=== PATIENT | male | born 1960 | race African-American/Black ===

== ENCOUNTER 2018-08-12 10:01 | Inpatient (IN) | payer OTHER ==
[2018-08-12 10:07] VITALS: BMI 23.6
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
[2018-08-12] MEDS ORDERED: IBUPROFEN 400 MG TABLET (FP) PO PRN (12:38)
[2018-08-12] MEDS ORDERED: MAG HYDROX/AL HYDROX/SIMETH 30 ML UNIT-DOSE CUP PO PRN (12:38)
[2018-08-12] MEDS ORDERED: guaiFENesin/D-METHORPHAN HB 10 ML UNIT-DOSE CUPS PO PRN (12:38)
[2018-08-12] MEDS ORDERED: ACETAMINOPHEN 325 MG TABLET (FP) PO PRN (12:38)
[2018-08-12] MEDS ORDERED: P-EPHED 60MG/TRIPROLIDI 2.5MG TABLET PO PRN (12:38)
[2018-08-12] MEDS ORDERED: MAGNESIUM CITRATE 300 ML BOTTLE PO PRN (12:38)
[2018-08-12] MEDS ORDERED: hydrOXYzine PAMOATE 25 MG CAPSULE (FP) PO PRN (12:38)
[2018-08-12] MEDS ORDERED: MAGNESIUM HYDROX 2400MG/30ML ORAL SUSPENSION 30 ML CUP PO PRN (12:38)
[2018-08-12] MEDS ORDERED: MENTHOL/PHENOL 1 EACH UD MM PRN (12:38)
[2018-08-12 14:29] LABS: HEMATOCRIT 35.5 % (35.4-49); HEMOGLOBIN 11.8 GM/dL (11.7-16.9); MCH 28.5 pg (25.7-33.7); MCHC 33.1 g/dl (32.0-35.9); MEAN CELL VOLUME 86.1 fl (80-96); MEAN PLT VOLUME 9.9 fl (7.5-11.1); PLATELET COUNT 216 K/MM3 (134-434); RBC 4.13 M/mm3 (4.00-5.60); RDW 14.7 % (11.9-15.9)
[2018-08-12 15:13] LABS: ALBUMIN 3.5 g/dl (3.4-5.0); ALK PHOS 110 U/L (45-117); ANION GAP 8 MMOL/L (8-16); BILIRUBIN,TOTAL 0.2 mg/dL (0.2-1); BLOOD UREA NITROGEN 21 mg/dL (7-18); CALCIUM 8.8 mg/dL (8.5-10.1); CHLORIDE 107 mmol/L (98-107); CO2 28 mmol/L (21-32); CREATININE 1.2 mg/dL (0.55-1.3); GLUCOSE,RANDOM 91 mg/dL (74-106); POTASSIUM 4.3 mmol/L (3.5-5.1); SGOT/AST 18 U/L (15-37); SGPT/ALT 24 U/L (13-61); SODIUM 143 mmol/L (136-145); TOT PROT 6.9 g/dl (6.4-8.2)
[2018-08-12] MEDS ORDERED: TUBERCULIN PPD 5 TU/0.1ML VIAL ID ONE (16:07)
[2018-08-12] MEDS: cloNIDine HCL 0.1 MG TABLET PO PRN (17:45)
[2018-08-12] MEDS: THIAMINE HCL 100 MG TABLET (FP) PO SCH (21:24)
[2018-08-12] MEDS ORDERED: MELATONIN 5 MG TABLETS PO PRN (22:00)
[2018-08-13] MEDS: PRENATAL VITAMINS W/ FOLIC ACID TABLET (FP) PO SCH (09:54)
[2018-08-13] MEDS: cloNIDine HCL 0.1 MG TABLET PO PRN (09:56)
[2018-08-13 10:37] LABS: URINE APPEARANCE CLEAR; URINE BILIRUBIN NEGATIVE (<2.0 mg/dL); URINE COLOR LTYELLOW; URINE GLUCOSE (UA) NEGATIVE (NEGATIVE); URINE KETONE NEGATIVE (NEGATIVE); URINE LEUK ESTERASE NEGATIVE (NEGATIVE); URINE NITRITE NEGATIVE (NEGATIVE); URINE PROTEIN NEGATIVE (NEGATIVE); URINE UROBILINOGEN NEGATIVE mg/dL (0.2-1.0)
[2018-08-13 11:24] LABS: RPR REACTIVE 1:4 (NONREACTIVE)
--- NOTE | 2018-08-13 11:59 | PN ---
[facility] Progress Note Note: Pt called for RPR 1:4/ confirmatory test positive. Pt states that he got treatment for syphilis 2 years back- 3 injections. Does not remember titers at that time. Denies new exposure to syphilis. Called Hadley Banuelos at [facility] who confirmed that pt was treated 2 years ago with 1 IM BCN for a titer of 1:256. Will not treat pt at this time as he is asymptomatic.
[2018-08-13 14:54] LABS: TREPONEMA ANTIBODY REACTIVE (NONREACTIVE)
--- NOTE | 2018-08-13 16:25 | HP ---
Psychiatrist Admission - Data Date of interview: 08/13/18 Admission source: [facility] Identifying data: this is the first admission to [address] [place] [address] inpatient rehabilitation for this 58 years old AA single male undomiciled,no financial support. Medical History: Significant for HTN Psychiatric History: denies Physical/Sexual Abuse/Trauma History: denies Vital Signs: Vital Signs - 24 hr 08/12/18 08/13/18 08/13/18 17:42 00:45 03:30 Temperature Pulse Rate 69 Respiratory 18 18 Rate Blood Pressure 157/76 08/13/18 08/13/18 06:50 10:00 Temperature 98.9 F Pulse Rate 58 L 78 Respiratory 18 Rate Blood Pressure 152/85 150/88 Allergies/Adverse Reactions: Allergies Allergy/AdvReac Type Severity Reaction Status Date / Time No Known Drug Allergies Allergy Verified 08/12/18 10:38 Concur with the findings of this exam: Yes - Substance Abuse/Tx History Hx Alcohol Use: Yes (drinking since 17 yo,beer,then vodka ,heavy since 20 yo) Hx Substance Use: Yes (crack/cocaine since 31 yo,$100 daily) Substance Use Type: Alcohol, Cocaine Hx Substance Use Treatment: Yes (longest abstinence 1 year while being in assisted treatment) Mental Status Exam - Mental Status Exam Alert and Oriented to: Time, Place, Person Cognitive Function: Grossly Intact Patient Appearance: Unkempt Mood: Sad Affect: Mood Congruent Patient Behavior: Cooperative Speech Pattern: Clear Voice Loudness: Normal Thought Process: Goal Oriented Thought Disorder: Not Present Hallucinations: Denies Suicidal Ideation: Denies Homicidal Ideation: Denies Insight/Judgement: Fair Sleep: Fair Appetite: Good Muscle strength/Tone: Normal Gait/Station: Normal Psychiatric Findings - Problem List ([place] 1, 2,3) (1) Syphilis Current Visit: Yes Status: Chronic Comment: pt was treated in 2015, RPR titer at that time was 1:256, 08/2018 1:4 (2) Cannabis dependence Current Visit: Yes Status: Chronic (3) Cocaine dependence Current Visit: Yes Status: Chronic Qualifiers: Substance use status: uncomplicated Qualified Code(s): F14.20 - Cocaine dependence, uncomplicated (4) Nicotine dependence Current Visit: Yes Status: Chronic Qualifiers: Nicotine product type: cigarettes (5) Alcohol dependence Current Visit: Yes Status: Chronic (6) Hypertension Current Visit: Yes Status: Chronic - Initial Treatment Plan Initial Treatment Plan: will monitor progress.
[2018-08-13] MEDS: THIAMINE HCL 100 MG TABLET (FP) PO SCH (21:19)
[2018-08-14] MEDS: cloNIDine HCL 0.1 MG TABLET PO PRN (06:48)
[2018-08-14] MEDS: PRENATAL VITAMINS W/ FOLIC ACID TABLET (FP) PO SCH (10:00)
[2018-08-14] MEDS: THIAMINE HCL 100 MG TABLET (FP) PO SCH (21:21)
[2018-08-15] MEDS: PRENATAL VITAMINS W/ FOLIC ACID TABLET (FP) PO SCH (09:39)
[2018-08-15] MEDS: cloNIDine HCL 0.1 MG TABLET PO PRN (09:40)
[2018-08-15] MEDS: THIAMINE HCL 100 MG TABLET (FP) PO SCH (21:13)
[2018-08-16] MEDS: PRENATAL VITAMINS W/ FOLIC ACID TABLET (FP) PO SCH (10:18)
[2018-08-16] MEDS ORDERED: COLLOIDAL OATMEAL 1 BAR EACH TP PRN (11:00)
[2018-08-16] MEDS: THIAMINE HCL 100 MG TABLET (FP) PO SCH (21:13)
[2018-08-17] MEDS: cloNIDine HCL 0.1 MG TABLET PO PRN (06:25)
[2018-08-17] MEDS: PRENATAL VITAMINS W/ FOLIC ACID TABLET (FP) PO SCH (10:08)
[2018-08-17] MEDS: THIAMINE HCL 100 MG TABLET (FP) PO SCH (21:16)
[2018-08-18] MEDS: PRENATAL VITAMINS W/ FOLIC ACID TABLET (FP) PO SCH (09:51)
[2018-08-18] MEDS: THIAMINE HCL 100 MG TABLET (FP) PO SCH (21:21)
[2018-08-19 06:45] VITALS: BP 168/98; PULSE 60; TEMP 98.5
[2018-08-19] MEDS: PRENATAL VITAMINS W/ FOLIC ACID TABLET (FP) PO SCH (10:05)
[2018-08-19] MEDS: cloNIDine HCL 0.1 MG TABLET PO PRN (10:06)
== END 2018-08-19 10:35 | disposition left against medical advice (07) | DRG 770 ==
LOC: YASAS 10:01 → Y5N 11:29
PROVIDERS: ADMIT Psychiatry & Neurology Psychiatry; ATTEND Psychiatry & Neurology Psychiatry
PROC: HZ42ZZZ Group Counseling for Substance Abuse Treatment, Cognitive-Behavioral (ICD-10-PCS; principal; 2018-08-12)
DX: F10.20 Alcohol dependence, uncomplicated (principal); F14.20 Cocaine dependence, uncomplicated; F12.20 Cannabis dependence, uncomplicated; F17.210 Nicotine dependence, cigarettes, uncomplicated; I10 Essential (primary) hypertension; A53.9 Syphilis, unspecified
CPT/HCPCS: 36415; 71046-TC-FY; 80053; 81003; 85027; 86593; 86780; J0735